=== PATIENT | male | born 1970 | race Caucasian/White ===

== ENCOUNTER 2019-10-06 20:28 | Inpatient (IN) ==
[2019-10-06 21:49] LABS: Basophils % 0.3 %; Eosinophils # 0.3 K/mcL (0.0-0.6); Eosinophils % 2.9 %; Hematocrit 38.6 % (37.5-50.1); Hemoglobin 12.7 g/dL (12.9-16.9); Immature Granulocytes % 0.5 % (0-4); Lymphocytes # 2.2 K/mcL (0.6-4.6); Mean Corpuscular HGB Conc 32.9 g/dL (31.6-35.5); Mean Corpuscular Hemoglobin 26.9 pg (28.0-33.3); Mean Corpuscular Volume 81.8 fL (83.0-100.0); Mean Platelet Volume 10.2 fL (9.4-12.4); Monocytes # 0.6 K/mcL (0.0-1.3); Monocytes % 5.7 %; Neutrophils # 7.7 K/mcL (1.6-8.9); Platelet Count 273 K/mcL (140-400); Red Blood Count 4.72 M/mcL (4.19-5.50); Segmented Neutrophils % 70.6 %; White Blood Count 10.9 K/mcL (4.3-11.1)
[2019-10-06 21:51] LABS: Prothrombin Time 11.5 Seconds (9.4-12.1)
[2019-10-06 22:02] LABS: Albumin 4.3 g/dL (3.5-5.7); Albumin/Globulin Ratio 1.4 (1.1-2.2); Bilirubin,Direct 0.1 mg/dL (0.0-0.2); Bilirubin,Indirect 0.4 mg/dL (0.0-1.0); Bilirubin,Total 0.5 mg/dL (0.3-1.0); Total Protein 7.3 g/dL (6.4-8.9)
[2019-10-06 22:04] LABS: BUN/Creatinine Ratio 22 (6-26); Blood Urea Nitrogen 21 mg/dL (6-20); Calcium 10.9 mg/dL (8.6-10.3); Carbon Dioxide 28 mEq/L (23-29); Chloride 99 mEq/L (98-107); Glucose 138 mg/dL (70-105); Osmolality,Calculated 283 (280-300); Potassium 4.7 mEq/L (3.5-5.1); Sodium 134 mEq/L (136-145); eGFR For African Americans > 60 (> 60); eGFR For Non-African Americans > 60 (> 60)
[2019-10-06 22:05] LABS: Troponin I < 0.03 ng/mL (< 0.04)
[2019-10-06 23:20] LABS: Bilirubin,Urine Moderate (Negative); Blood,Urine Large (Negative); Clarity,Urine Cloudy (Clear); Color,Urine Yellow (Yellow); Glucose,Urine (UA) Normal (Normal); Ketones,Urine Negative (Negative); Leukocyte Esterase,Urine Trace (Negative); Nitrite,Urine Negative (Negative); Protein,Urine Negative (Neg-Trace); Specific Gravity,Urine 1.029 (1.010-1.025); Urobilinogen,Urine Normal (Normal)
[2019-10-06 23:22] LABS: Bacteria,Urine None Seen per hpf (None-Few); Hyaline Casts,Urine None Seen per lpf (None-Few); RBC,Urine TNTC per hpf (0-3); Squamous Epithelial Cell,Urine Moderate per lpf (None-Few)
[2019-10-06 23:29] LABS: Amphetamine Screen,Urine Negative ng/mL (Cutoff=1000); Barbiturate Screen,Urine Negative ng/mL (Cutoff=200); Benzodiazepines Screen,Urine Negative ng/mL (Cutoff=200); Cannabinoid Screen,Urine Negative ng/mL (Cutoff = 50); Cocaine Screen,Urine Negative ng/mL (Cutoff= 300); Opiate Screen,Urine Negative ng/mL (Cutoff=300); Phencyclidine Screen,Urine Negative ng/mL (Cutoff=25)
[2019-10-07] MEDS ORDERED: Isovue-370 500 ML BOTTLE IVP ONE ×2 (01:30→15:43)
[2019-10-07 02:03] LABS: VBG HCO3 31 mEq/L (21-27); VBG PCO2 56 mmHg (41-51); VBG PH 7.35 pH Units (7.32-7.42); VBG PO2 63 mmHg (25-50)
[2019-10-07] MEDS ORDERED: Naloxone 0.4 MG/ML INJ IVP PRN ×2 (04:58→10:19)
[2019-10-07] MEDS ORDERED: Ipratropium/Albuterol Neb 3 ML IH PRN ×2 (05:13→10:19)
[2019-10-07] MEDS ORDERED: *HR* Heparin 5,000 UNIT/ML VIAL SQ SCH (07:45)
[2019-10-07 08:14] LABS: Alanine Aminotransferase 16 Units/L (7-52); Albumin 4.3 g/dL (3.5-5.7); Albumin/Globulin Ratio 1.4 (1.1-2.2); Alkaline Phosphatase 81 Units/L (34-104); Aspartate Amino Transferase 18 Units/L (13-39); BUN/Creatinine Ratio 22 (6-26); Bilirubin,Total 0.4 mg/dL (0.3-1.0); Blood Urea Nitrogen 19 mg/dL (6-20); Calcium 10.9 mg/dL (8.6-10.3); Carbon Dioxide 26 mEq/L (23-29); Chloride 98 mEq/L (98-107); Glucose 117 mg/dL (70-105); Osmolality,Calculated 285 (280-300); Sodium 136 mEq/L (136-145); Total Protein 7.3 g/dL (6.4-8.9); eGFR For African Americans > 60 (> 60); eGFR For Non-African Americans > 60 (> 60)
[2019-10-07] MEDS ORDERED: Aspirin 325 MG TABLET PO SCH (09:00)
[2019-10-07] MEDS ORDERED: Bisacodyl 10 MG RECTAL SUPPOSITORY RC PRN ×2 (10:01→10:19)
[2019-10-07 10:31] LABS: Basophils % 0.4 %; Eosinophils # 0.4 K/mcL (0.0-0.6); Eosinophils % 4.5 %; Hematocrit 39.7 % (37.5-50.1); Hemoglobin 12.6 g/dL (12.9-16.9); Immature Granulocytes % 0.3 % (0-4); Lymphocytes % 21.7 %; Mean Corpuscular HGB Conc 31.7 g/dL (31.6-35.5); Mean Corpuscular Hemoglobin 26.9 pg (28.0-33.3); Mean Corpuscular Volume 84.8 fL (83.0-100.0); Mean Platelet Volume 10.5 fL (9.4-12.4); Monocytes # 0.5 K/mcL (0.0-1.3); Monocytes % 5.1 %; Neutrophils # 6.2 K/mcL (1.6-8.9); Platelet Count 262 K/mcL (140-400); Red Blood Count 4.68 M/mcL (4.19-5.50); Red Cell Distribution Width 16.6 % (11.5-14.5); White Blood Count 9.1 K/mcL (4.3-11.1)
[2019-10-07] MEDS: Acetaminophen 325 MG TABLET PO PRN (12:24)
[2019-10-07] MEDS ORDERED: Gabapentin 100 MG CAPSULE PO SCH (15:00)
[2019-10-07] MEDS: Gabapentin 100 MG CAPSULE PO SCH ×2 (15:32→20:07)
[2019-10-07] MEDS: *HR* Heparin 5,000 UNIT/ML VIAL SQ SCH ×2 (15:33→21:06)
[2019-10-07] MEDS ORDERED: ISOVUE-370 100 ML INFUS..BTL PO ONE (18:24)
[2019-10-07] MEDS: Lithium Carbonate 300 MG CAPSULE PO SCH (20:06)
[2019-10-07] MEDS: clonazePAM 0.5 MG TABLET PO SCH (20:09)
[2019-10-07] MEDS ORDERED: clonazePAM 0.5 MG TABLET PO SCH (21:00)
[2019-10-07] MEDS ORDERED: Lithium Carbonate 300 MG CAPSULE PO SCH (21:00)
[2019-10-08 04:57] VITALS: BP 120/71
[2019-10-08] MEDS: *HR* Heparin 5,000 UNIT/ML VIAL SQ SCH ×2 (05:05→14:45)
[2019-10-08 06:57] LABS: Basophils # 0.1 K/mcL (0.0-0.2); Basophils % 0.7 %; Eosinophils # 0.4 K/mcL (0.0-0.6); Eosinophils % 5.3 %; Hematocrit 37.8 % (37.5-50.1); Hemoglobin 12.2 g/dL (12.9-16.9); Immature Granulocytes % 0.3 % (0-4); Lymphocytes % 26.4 %; Mean Corpuscular HGB Conc 32.3 g/dL (31.6-35.5); Mean Corpuscular Hemoglobin 27.1 pg (28.0-33.3); Mean Platelet Volume 10.1 fL (9.4-12.4); Monocytes # 0.5 K/mcL (0.0-1.3); Monocytes % 6.9 %; Neutrophils # 4.5 K/mcL (1.6-8.9); Platelet Count 249 K/mcL (140-400); Red Cell Distribution Width 16.5 % (11.5-14.5); Segmented Neutrophils % 60.4 %; White Blood Count 7.5 K/mcL (4.3-11.1)
[2019-10-08 07:20] LABS: BUN/Creatinine Ratio 20 (6-26); Blood Urea Nitrogen 16 mg/dL (6-20); Calcium 10.5 mg/dL (8.6-10.3); Carbon Dioxide 29 mEq/L (23-29); Chloride 100 mEq/L (98-107); Glucose 134 mg/dL (70-105); Magnesium 2.5 mg/dL (1.6-2.6); Osmolality,Calculated 287 (280-300); Phosphorous 2.6 mg/dL (2.7-4.5); Potassium 4.4 mEq/L (3.5-5.1); Sodium 137 mEq/L (136-145); eGFR For African Americans > 60 (> 60); eGFR For Non-African Americans > 60 (> 60)
[2019-10-08] MEDS: Lithium Carbonate 300 MG CAPSULE PO SCH (07:51)
[2019-10-08] MEDS: Gabapentin 100 MG CAPSULE PO SCH ×2 (07:53→14:45)
[2019-10-08] MEDS: clonazePAM 0.5 MG TABLET PO SCH (07:53)
[2019-10-08] MEDS ORDERED: Cholecalciferol (D-3) 1,000 UNIT (25MCG) TABLET PO SCH ×2 (09:00)
[2019-10-08] MEDS ORDERED: Aspirin 325 MG TABLET PO SCH (09:00)
[2019-10-08] MEDS ORDERED: Nicotine 21 MG PATCH.TD24 TD SCH ×2 (09:00)
[2019-10-08] MEDS ORDERED: PAROXETINE HCL 40 MG PO SCH (09:00)
[2019-10-08] MEDS: Acetaminophen 325 MG TABLET PO PRN (14:45)
[2019-10-08] MEDS ORDERED: MOM Conc 10 ML UD.LIQ PO ONE (15:33)
[2019-10-08] MEDS ORDERED: Bisacodyl 10 MG RECTAL SUPPOSITORY RC PRN (15:34)
[2019-10-08] MEDS ORDERED: Sennosides/Docusate Sodium TABLET PO SCH (21:00)
[2019-10-09] MEDS ORDERED: MOM Conc 10 ML UD.LIQ PO SCH (09:00)
== END 2019-10-08 20:00 | DRG 313 ==
LOC: EMEROOARM 20:28 → ICNU 20:28
PROVIDERS: ADMIT Internal Medicine; ATTEND Internal Medicine

== ENCOUNTER 2022-02-26 14:29 | Observation (INO) ==
[2022-02-26 15:01] LABS: Basophils % 0.4 %; Eosinophils # 0.1 K/mcL (0.0-0.6); Eosinophils % 1.7 %; Immature Granulocytes % 1.1 % (0-4); Lymphocytes # 1.9 K/mcL (0.6-4.6); Lymphocytes % 25.3 %; Mean Corpuscular HGB Conc 32.5 g/dL (31.6-35.5); Mean Corpuscular Hemoglobin 26.8 pg (28.0-33.3); Mean Corpuscular Volume 82.6 fL (83.0-100.0); Monocytes # 0.6 K/mcL (0.0-1.3); Neutrophils # 4.8 K/mcL (1.6-8.9); Platelet Count 147 K/mcL (140-400); Red Blood Count 4.36 M/mcL (4.19-5.50); Red Cell Distribution Width 14.6 % (11.5-14.5); Segmented Neutrophils % 63.5 %; White Blood Count 7.5 K/mcL (4.3-11.1)
[2022-02-26] MEDS ORDERED: Nitroglycerin 0.4 MG TAB.SUBL SL PRN ×2 (15:11→16:16)
[2022-02-26 15:18] LABS: Hemoglobin 11.7 g/dL (12.9-16.9)
[2022-02-26 15:19] LABS: BUN/Creatinine Ratio 14 (6-26); Blood Urea Nitrogen 10 mg/dL (6-20); Calcium 9.6 mg/dL (8.6-10.3); Carbon Dioxide 27 mEq/L (23-29); Chloride 96 mEq/L (98-107); Glucose 162 mg/dL (70-105); Osmolality,Calculated 273 (280-300); Potassium 4.2 mEq/L (3.5-5.1); Sodium 130 mEq/L (136-145); eGFR For African Americans > 60 (> 60); eGFR For Non-African Americans > 60 (> 60)
[2022-02-26 15:20] LABS: Troponin I < 0.03 ng/mL (< 0.04)
[2022-02-26] MEDS ORDERED: Acetaminophen 325 MG TABLET PO PRN ×2 (16:14→16:16)
[2022-02-26] MEDS ORDERED: Ondansetron 4 MG/2 ML VIAL IVP PRN (16:14)
[2022-02-26] MEDS ORDERED: Melatonin 3 MG TABLET PO PRN (16:14)
[2022-02-26] MEDS ORDERED: Naloxone 0.4 MG/ML INJ IVP PRN (16:14)
[2022-02-26] MEDS ORDERED: Benzocaine 20% 12 APPL GEL..GRAM. MM PRN (16:24)
[2022-02-26] MEDS ORDERED: Lactulose Oral Soln 20 GM/30 ML UDC PO PRN (18:20)
[2022-02-26] MEDS ORDERED: Bisacodyl 10 MG RECTAL SUPPOSITORY RC PRN (18:20)
[2022-02-26] MEDS: polyethylene glycoL 3350 17 GM POWD.PACK PO SCH (18:51)
[2022-02-26] MEDS: cloZAPine 100 MG TABLET PO SCH (19:58)
[2022-02-26] MEDS: Sennosides/Docusate Sodium TABLET PO SCH (19:58)
[2022-02-27 05:28] LABS: BUN/Creatinine Ratio 21 (6-26); Blood Urea Nitrogen 13 mg/dL (6-20); Calcium 9.8 mg/dL (8.6-10.3); Carbon Dioxide 30 mEq/L (23-29); Chloride 97 mEq/L (98-107); Chol/HDL Ratio 2.3 (0-4.9); Cholesterol 115 mg/dL (< 200); Glucose 113 mg/dL (70-105); HDL Cholesterol 49 mg/dL (40-59); LDL Cholesterol,Calculated 11 mg/dL (< 100); Osmolality,Calculated 277 (280-300); Potassium 4.4 mEq/L (3.5-5.1); Sodium 133 mEq/L (136-145); Triglycerides 275 mg/dL (< 150); eGFR For African Americans > 60 (> 60); eGFR For Non-African Americans > 60 (> 60)
[2022-02-27 05:32] LABS: Hematocrit 38.3 % (37.5-50.1); Hemoglobin 12.6 g/dL (12.9-16.9); Mean Corpuscular HGB Conc 32.9 g/dL (31.6-35.5); Mean Corpuscular Hemoglobin 26.8 pg (28.0-33.3); Mean Corpuscular Volume 81.3 fL (83.0-100.0); Mean Platelet Volume 9.9 fL (9.4-12.4); Platelet Count 174 K/mcL (140-400); Red Blood Count 4.71 M/mcL (4.19-5.50); Red Cell Distribution Width 14.6 % (11.5-14.5); White Blood Count 10.6 K/mcL (4.3-11.1)
[2022-02-27] MEDS: polyethylene glycoL 3350 17 GM POWD.PACK PO SCH (08:31)
[2022-02-27] MEDS: Sennosides/Docusate Sodium TABLET PO SCH ×2 (08:31→20:10)
[2022-02-27] MEDS: Aspirin Enteric Coated 81 MG Tablet PO SCH (08:31)
[2022-02-27] MEDS: cloZAPine 25 MG TABLET PO SCH (08:31)
[2022-02-27] MEDS: cloZAPine 100 MG TABLET PO SCH (20:10)
[2022-02-28 05:48] LABS: Basophils % 0.4 %; Eosinophils # 0.2 K/mcL (0.0-0.6); Eosinophils % 2.1 %; Hematocrit 37.9 % (37.5-50.1); Hemoglobin 12.5 g/dL (12.9-16.9); Immature Granulocytes % 0.5 % (0-4); Lymphocytes % 30.4 %; Mean Corpuscular Hemoglobin 26.8 pg (28.0-33.3); Mean Corpuscular Volume 81.3 fL (83.0-100.0); Mean Platelet Volume 9.7 fL (9.4-12.4); Monocytes # 0.7 K/mcL (0.0-1.3); Monocytes % 6.6 %; Platelet Count 182 K/mcL (140-400); Red Blood Count 4.66 M/mcL (4.19-5.50); Red Cell Distribution Width 15.3 % (11.5-14.5)
[2022-02-28 06:05] LABS: BUN/Creatinine Ratio 20 (6-26); Blood Urea Nitrogen 15 mg/dL (6-20); Calcium 9.9 mg/dL (8.6-10.3); Carbon Dioxide 29 mEq/L (23-29); Chloride 98 mEq/L (98-107); Glucose 109 mg/dL (70-105); Osmolality,Calculated 277 (280-300); Potassium 4.5 mEq/L (3.5-5.1); Sodium 133 mEq/L (136-145); eGFR For African Americans > 60 (> 60); eGFR For Non-African Americans > 60 (> 60)
[2022-02-28] MEDS ORDERED: Regadenoson 0.4 MG/5 ML SYRINGE IVP ONE (06:31)
[2022-02-28] MEDS ORDERED: Fluticasone Propionate Nasal 50 MCG/SPRAY BOTTLE NS SCH (09:00)
[2022-02-28] MEDS: Aspirin Enteric Coated 81 MG Tablet PO SCH (09:14)
[2022-02-28] MEDS: polyethylene glycoL 3350 17 GM POWD.PACK PO SCH (09:14)
[2022-02-28] MEDS: Sennosides/Docusate Sodium TABLET PO SCH ×2 (09:14→21:11)
[2022-02-28] MEDS: cloZAPine 25 MG TABLET PO SCH (09:14)
[2022-02-28 18:16] LABS: Amphetamine Screen,Urine Negative ng/mL (Cutoff=1000); Barbiturate Screen,Urine Negative ng/mL (Cutoff=200); Benzodiazepines Screen,Urine Negative ng/mL (Cutoff=200); Cannabinoid Screen,Urine Negative ng/mL (Cutoff = 50); Cocaine Screen,Urine Negative ng/mL (Cutoff= 300); Opiate Screen,Urine Negative ng/mL (Cutoff=300); Phencyclidine Screen,Urine Negative ng/mL (Cutoff=25)
[2022-02-28] MEDS ORDERED: TETRABENAZINE 12.5 MG PO SCH (21:00)
[2022-02-28] MEDS ORDERED: Divalproex (24 HR) 500 MG TABLET PO SCH (21:00)
[2022-02-28] MEDS ORDERED: traZODone 50 MG TABLET PO SCH (21:00)
[2022-02-28] MEDS: cloZAPine 100 MG TABLET PO SCH (21:11)
[2022-02-28 22:09] LABS: Influenza A PCR Negative (Negative); Influenza B PCR Negative (Negative); Resp. Syncytial Virus PCR Negative (Negative)
[2022-02-28 22:10] LABS: SARS-CoV-2 by PCR (In House) Negative (Negative)
[2022-02-28 22:31] VITALS: BP 132/88; PULSE 83; TEMP 98.1; O2SAT 97
== END 2022-03-01 00:30 ==
LOC: EMEROOARM 14:29 → 3BNU 14:29 → SUATTDRO 16:52 → 3BNU 18:04
PROVIDERS: ADMIT Pharmacist; ATTEND Internal Medicine